=== PATIENT | male | born 1975 | race Caucasian/White ===

== ENCOUNTER 2021-03-08 22:31 | Emergency (ER) | payer OTHER ==
[~2021-03-08 22:31] MED LIST: IBU800 MG PO; NORCO 5-325 TA1 EACH PO; ONDANSETRON ODT8 MG PO; PREDNISONE 20MG20 MG PO; ROBAXIN750 MG PO; SEROQUEL 100MG100 MG PO
[2021-03-08] MEDS ORDERED: CLEOCIN300 MG PO (23:56)
== END 2021-03-09 00:42 | disposition home or self-care (01) ==
LOC: FER 22:31
DX: L03.113 Cellulitis of right upper limb (principal); F17.200 Nicotine dependence, unspecified, uncomplicated
CPT/HCPCS: 73080